=== PATIENT | female | born 1990 | race Caucasian/White ===

== ENCOUNTER 2017-05-12 17:35 | Emergency (ER) | payer OTHER ==
[~2017-05-12] VITALS: Ht 152.4 cm; Wt 91.5 kg
[2017-05-12 18:38] LABS: INFLUENZA TYPE B NEGATIVE FOR TYPE B (NEGATIVE)
[2017-05-12 19:27] VITALS: BP 111/67
== END 2017-05-12 19:47 | disposition home or self-care (01) ==
LOC: EMS 17:41
DX: J20.9 Acute bronchitis, unspecified (principal)
CPT/HCPCS: 87804; 99284